=== PATIENT | female | born 1965 | race Caucasian/White ===

== ENCOUNTER 2017-06-14 07:36 | Emergency (ER) | payer BC ==
[~2017-06-14] VITALS: Ht 160 cm; Wt 59.9 kg
[2017-06-14] MEDS ORDERED: TIROSINT100 MCG PO (07:52)
[2017-06-14] MEDS ORDERED: BACTRIM DS TAB1 EACH PO (09:09)
[2017-06-14] MEDS ORDERED: NORCO 5-325 TA1 EACH PO (09:09)
== END 2017-06-14 09:40 | disposition home or self-care (01) ==
LOC: ED 07:36
DX: N39.0 Urinary tract infection, site not specified (principal); E03.9 Hypothyroidism, unspecified; Z98.51 Tubal ligation status; Z79.899 Other long term (current) drug therapy
CPT/HCPCS: 80053; 81001; 82150; 83690; 85025; 87077; 87088; 87186; 96361; 96374; 96375; 99284; J1170; J2405; J7030

== ENCOUNTER 2024-06-16 12:49 | Emergency (ER) | payer BC ==
[~2024-06-16] VITALS: Ht 160 cm; Wt 57.3 kg
[~2024-06-16 12:49] MED LIST: BACTRIM DS TAB1 EACH PO; NORCO 5-325 TA1 EACH PO; TIROSINT100 MCG PO
[2024-06-16] MEDS ORDERED: AMOX TR-K CLV1 EAC1 PO (13:36)
[2024-06-16] MEDS ORDERED: LIDOCAINE HCL100 ML MT (13:36)
[2024-06-16] MEDS ORDERED: KETOROLAC TROME10 MG PO (13:36)
[2024-06-16 13:45] VITALS: BP 130/98
== END 2024-06-16 13:45 | disposition home or self-care (01) ==
LOC: ED 12:49
DX: K04.7 Periapical abscess without sinus (principal); Z88.1 Allergy status to other antibiotic agents; Z88.2 Allergy status to sulfonamides; Z79.890 Hormone replacement therapy
CPT/HCPCS: 99282